=== PATIENT | female | born 1960 | race Caucasian/White ===

== ENCOUNTER 2024-01-31 08:04 | Outpatient (AMB) | payer OTHER, SELFPAY ==
--- NOTE | 2024-01-31 08:16 | A.OFFVIS_ITS ---
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 Patient reports right hand 2nd and 5th digits are lindsay, she has had two injection in her pointer finger. Her last surgeon palmar surgeon on her right hand because of her past surgery. She says these fingers contract daily. Her left hand she is having daily intermittent numbness and tingling in all her left hand digits followed by pain. 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 Reports difficulty gripping, grasping, and lifting objects. She says she has dropped things in the past so she tries to make sure she has a good enough time motion analyst on things before picking them up. Has tried braces and multiple steroid injections to the left thumb and a steroid injection to the right middle finger. The inject she received in the past have helped her with her triggering fingers. Patient was also referred to OT. Hx right middle finger release 06/10/[address] Diaz at [facility]. EMG done at [facility], pt agreed to request results 01/25/24. 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 She complains of pain in her bilateral hands since ~2019. She has pain with gripping, lifting, and holding objects. She reports contractures of her right hand, which makes it difficult to hold things for long periods. She also complains of numbness in her bilateral hands, L>R. She has numbness in her thumbs, index, and middle fingers bilaterally. Symptoms intermittent, but daily, worse at night or with activities such as prolonged driving. She insists that her left small finger also goes numb, but denies small finger numbness in her right. Her NCS showed mild bilateral carpal tunnel syndrome. No copy of the report available, she will request this to be sent over. She also complains of multiple fingers locking & catching on her. She complains of several weeks of her right small finger locking overnight, and during the day with use. Her right index finger recently received a steroid injection at an out side clinic ~4 weeks ago, which has helped, but she continues to have locking issues. She says this was her second index finger injections, and finds they have been somewhat helpful for her. She has a Hx of multiple trigger fingers, S/P release at an outside clinic. Her last was her right middle finger release, DOS: 06/10/[address] Simeon. She has a left trigger thumb released in ~2009 in [place]. She says she was told that she can never have palmar surgery again without developing worsening Dupuytrens contractures. She works as a professional musician, playing Saxophone, and enjoys gardening & painting. She says she often [place] 300+ miles a week to play music, which is difficult for her and makes her hands numb. She says her Saxophone weighs ~40lbs. She says she has done OT hand therapy in the past, with some improvement, and she continues to perform some exercises at home. She also says she has some unknown neurological disorder, possible MS but not confirmed, seeing neuro specialist in [place]. She reports recent brain surgery but does not specify what it was/was for. She says her is dying . 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 Review of Systems Const All systems reviewed & are unremarkable except as noted in HPI and below Physical Exam Vital Signs: BMI result Body Mass Index 25.0 Const General: cooperative, healthy appearing and no acute distress Orientation/consciousness: patient oriented x3 HEENT Head: Yes normocephalic and Yes atraumatic Eyes EOM: EOMs intact bilaterally Resp Effort & Inspection: normal respiratory effort and able to speak in complete sentences Cardio Jugular venous distension: no JVD Skin General skin exam: turgor normal Rashes: no rashes Neuro General: patient oriented x3 Extrem Other: Evaluation of Bilateral Upper Extremity: The patient is alert, oriented, and in no acute distress Please note the patient became somewhat tearful in clinic today. She is evidently going through a lot. She was told that she might have MS, and says that her is dying. 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 Today she had compression gloves on both hands and had Velcro wrist splints on both wrists. She says she needs to wear them because of the carpal tunnel, and the compression gloves she says her because of the generalized pain she gets in her hands. Neuro: Median, Ulnar, Radial nerves motor and sensory intact and sensation is normal to the tips of all digits Vascular: Cap refill brisk ROM: Regarding the left hand: She can bring her fingers closed to a fist bilaterally She can extend all the digits of her left hand Regarding the right hand: She can bring her right thumb, index, ring, and small fingers into full extension There is an early Dupuytrens cord extending from the right mid-palmar region to the middle finger. Her middle finger MCP joint is held in ~15-20 degrees of flexion secondary to this central cord. She demonstrated some catching of the right small finger. I was unable to palpate catching at the A1 thu. No locking or catching of her other fingers of her right hand today in clinic Tender over the a1 thu of the right small finger Skin: No lacerations or abrasions. General: No Ecchymosis. No Erythema or evidence of infection. Nerve Conduction Study: Mild bilateral carpal tunnel syndrome, Left>Right Dr. Marlys Peres 03/07/23 Psych Appearance: grossly normal Affect: normal affect Attitude: cooperative Assessment & Plan Assessment & Plan (1) Carpal tunnel syndrome of left wrist: Code(s): G56.02 - Carpal tunnel syndrome, left upper limb Category: Medical (2) Carpal tunnel syndrome of right wrist: Code(s): G56.01 - Carpal tunnel syndrome, right upper limb Category: Medical (3) Numbness of left hand: Code(s): R20.0 - Anesthesia of skin Category: Medical (4) Dupuytren's contracture of right hand: Code(s): M72.0 - Palmar fascial fibromatosis [Dupuytren] Category: Medical (5) Trigger finger, right index finger: Code(s): M65.321 - Trigger finger, right index finger Category: Medical (6) Trigger finger, right little finger: Code(s): M65.351 - Trigger finger, right little finger Category: Medical (7) Right hand pain: Code(s): M79.641 - Pain in right hand Category: Medical Plan Assessment & Plan: 1. Left carpal tunnel syndrome, mild Symptoms intermittent, but daily, worse at night I educated her about this condition I discussed operative and non-operative treatment options The patient would like to proceed with surgery The risks and benefits of operative treatment were discussed with the patient and the patient wishes to proceed with surgery. These risks include, but are not limited to risk of damage to blood vessels, nerves, tendons, infection, recurrence, incomplete relief of preoperative symptoms, persistent pain, possible need for further surgery and the risks associated with regional blocks and anesthesia. The plan is to take the patient to the operating room sometime in the next few weeks for the following procedures: 1. Left carpal tunnel release, under local All of the preoperative paperwork including the consent was reviewed today. All the patient's questions were answered. The patient understands that they will be contacted by our planner/scheduler soon to schedule this procedure She denies Diabetes, blood thinners, asthma, heart, lung, kidney issues 2. Right carpal tunnel syndrome, mild Symptoms intermittent, but daily, worse at night or with driving She is seen today wearing bilateral compression gloves & bilateral wrist splints We can discuss treatment options when her left hand has recovered from surgery She should discontinue wearing her wrist brace during the day, except for prolonged driving or at night 3. Right small finger catching No catching seen today in clinic Most likely trigger finger, however we should Re-evaluate extensor mechanism to assess for possible extensor tendon issue 4. Right index finger trigger finger S/P 2 injections at an outside clinic Last injection was done in 12/2023 She can follow up to discuss treatment options at a later date 5. Right middle finger early Dupuytrens contracture MCP 15-20/PIP 0 Slender central cord extending into mid-palm I educated her about this condition I discussed operative and non-operative treatment options patient reports she was told by Dr. Simeon that she can not have any more palmar surgeries ?? i directed her to the [email or web address] website for more information I recommend she work on ROM exercises at home, including placing her hand flat on the table No operative intervention indicated at this time If her symptoms increase in severity she can follow up to discuss possible surgical treatment options 6. Left hand numbness In the small finger No Cubital tunnel seen on NCS, no copy of report available for review We will see how she is feeling following her carpal tunnel release We may consider a new NCS in the future 7. Right middle finger trigger finger, S/P release DOS: 06/10/22, done by Dr. Simeon Resolved 8. Left trigger thumb, S/P release DOS: ~2009 at an outside clinic Resolved 9. Right hand pain Frequent rubbing of the MCP and PIP joints, generalized pain 10. Right hand possible spasms Holding the MCP joints in flexion Patient reports her MCP joints get stuck in ~80-90 degrees of flexion Given a brace by OT to hold her MCP joints in extension The only restraint to full extension of the right hand MCP joints, is the slender Dupouytrens cord affecting the middle finger Otherwise etiology unclear Please note that greater than 55 minutes was spent with this patient going over the history, evaluating the patient and radiographs, formulating possible treatment options, discussing them with the patient, and documenting the visit. Scribed for Leann Lu MD by Mendel Aly medical malpractice paralegal, on 01/31/24 at 8:30 AM, EST. Coding Level of Care Code New Pt Level 5 (93115) Diagnoses Carpal tunnel syndrome of left wrist G56.02 Carpal tunnel syndrome of right wrist G56.01 Numbness of left hand R20.0 Dupuytren's contracture of right hand M72.0 Trigger finger, right index finger M65.321 Trigger finger, right little finger M65.351 Right hand pain M79.641
[2024-01-31 08:18] VITALS: BMI 25.0
== END 2024-01-31 09:04 | disposition home or self-care (01) ==
PROVIDERS: Visit Provider Orthopaedic Surgery
DX: G56.03 Carpal tunnel syndrome, bilateral upper limbs (principal); R20.0 Anesthesia of skin; M72.0 Palmar fascial fibromatosis [Dupuytren]; M65.321 Trigger finger, right index finger; M65.351 Trigger finger, right little finger; M79.641 Pain in right hand
CPT/HCPCS: 99205

== ENCOUNTER → 2024-01-31 08:04 | Outpatient (BNVA) | payer OTHER, SELFPAY | PROVIDERS: Visit Provider Orthopaedic Surgery ==

== ENCOUNTER 2024-03-21 06:01 | Day surgery (SDC) | payer OTHER, SELFPAY ==
[2024-03-21 06:25] VITALS: BP 132/72; PULSE 65; RESP 16; TEMP 36.5; O2SAT 96; BMI 25.8
--- NOTE | 2024-03-21 08:05 | MHC.SHP ---
Pre-Procedural Eval Section A - 24 Hr Update-Section A only Date of Service: 03/21/24 The patient is an INPATIENT: No Changes since office visit: No Cold of Flu in the past 2 weeks, No New Medical Problems, No Changes in Medication and No Patient answered all questions The patient has been examined within 24 hours of the surgical procedure. The History & Physical has been completed within 30 days and I have reviewed it.: Yes Section B - Complete if H&P > 30 days Chief Complaint: Carpal tunnel syndrome, left upper limb Allergies: Allergies Allergy/AdvReac Type Severity Reaction Status Date / Time aspirin Allergy Severe Itching Verified 03/21/24 06:24 bee pollen [BEE STINGS] Allergy Severe SWELLING Verified 03/21/24 06:24 tramadol Allergy Severe Itchy Eyes Verified 03/21/24 06:24 acetaminophen [From VICODIN] AdvReac Mild NAUSEA & Verified 03/21/24 06:24 VOMITING hydrocodone [From VICODIN] AdvReac Mild NAUSEA & Verified 03/21/24 06:24 VOMITING Plan Diagnosis/Plan: Unchanged I have reviewed the history and physical and performed a pertinent physical examination on my patient. No changes have occurred unless specified. Time Spent With Patient Time: Total time managing care of this patient today ____ minutes.
--- NOTE | 2024-03-21 08:06 | P.OP_ITS ---
Operative Note Operative Note Date of Service: 03/21/24 Narrative: Preop diagnosis: 1. Left Carpal tunnel syndrome Postop diagnosis: same Procedure: 1. Left Carpal tunnel release Surgeon: Leann Lu MD Regional Environmental Manager: Jordan MONTES Anesthesia: local block using 1% lidocaine with epinephrine Findings: Thickened transverse carpal ligament. EBL: Less than 5 mL Specimens: None Complications: None Disposition: Brought to recovery room in stable condition Plan: Follow-up for 10-14 days for wound check and suture removal Indications: The patient is 63 years old, with left carpal tunnel syndrome that has been unresponsive to nonoperative management. The risks and benefits of operative treatment including but not limited to risk of damage to blood vessels, nerves, tendons, infection, persistent pain, persistent symptoms, or possible need for additional surgery were discussed with the patient and the patient wishes to proceed with surgery. Procedure: Once consent was obtained a local block was performed using a combination of 1% lidocaine with epinephrine. The patient was then brought back to the operating suite and placed on the operative table in supine position. The left upper extremity was prepped and draped in a standard surgical fashion. Once assured that we had a good block, a 2.0 cm longitudinal incision was made centered over the carpal tunnel. The incision was made through the skin to the subcutaneous tissues using a #15 blade. Dissection was made down to the level of the transverse carpal ligament with care being taken to protect the palmar cutaneous nerve. Once the transverse carpal ligament was clearly visualized, a longitudinal incision was made in the transverse carpal ligament 1st using a #15 blade, then using tenotomy scissors under direct visualization. Care was taken to look for and protect the motor branch of the median nerve when seen in this area. Once satisfied with our carpal tunnel release the wound was copiously irrigated with normal saline and hemostasis was obtained with a brief period of local pressure. The skin edges were reapproximated with some 5.0 nylon suture material and a sterile dressing was applied. The patient appears to have tolerated the procedure well and with no complications. All digits were well vascularized at the conclusion of the case.
[2024-03-21 09:14] VITALS: BP 135/56; PULSE 56; RESP 16; O2SAT 97
--- OUTSIDE RECORDS SUMMARY | 2024-03-26 22:45 | XMS_ITS | Continuity of Care Document ---
Author Organization [facility] Address [address] [place] [address] [address] [place] [id number] Phone Care Team Providers Care Trail Construction Worker Name Role Phone Watson VASQUEZ FACS DUSTINT Heather MCLAUGHLIN Unavailable Unavailable Advance Directives Directive Yes / No Effective Date File Name No Information Encounters Encounter Description Practice Location Reason(s) For Visit Diagnoses Date Provider Providers Copied on Encounter [facility], [address] [place] [address] Dr [address], [place], [id number], tel:[phone] [address] [facility] No Information 3 Watson VASQUEZ FACS ERMA Dominguez. [address] [place] [address], [address], [place]. tel:[phone] Family History Family Member Type Diagnosis Age At Onset No Information Payers Payer name Insurance type Covered republican ID Authoriza tion(s) No Information Social History Type Description Quantity Date Captured Comments Sex Female Smoking Status No Information Chief Complaint And Reason For Visit No Information Reason For Referral Reason For Referral No Information History Of Present Illness Encounter Date Complaint History Of Prese nt Illness No Information Functional Status Date Functional Assessmen t No Information Instructions Date Instruction Additional Infor mation No Information Assessments Type Assessment Date No Information Patient Care Teams Name Effective Dates (start - stop) Status Members No Information
== END 2024-03-21 09:17 | disposition home or self-care (01) ==
PROVIDERS: PCP Family Medicine; Visit Provider Orthopaedic Surgery
PROC: (CPT 64721; principal; 2024-03-21 08:10)
DX: G56.02 Carpal tunnel syndrome, left upper limb (principal); R20.0 Anesthesia of skin; R20.2 Paresthesia of skin; M79.642 Pain in left hand; M72.0 Palmar fascial fibromatosis [Dupuytren]; M79.641 Pain in right hand; Z88.6 Allergy status to analgesic agent; Z88.5 Allergy status to narcotic agent; Z98.890 Other specified postprocedural states
CPT/HCPCS: 64721; J0171; J2003

== ENCOUNTER → 2024-03-21 06:01 | Outpatient (BNV) | payer OTHER, SELFPAY | PROVIDERS: PCP Family Medicine; Visit Provider Orthopaedic Surgery | DX: G56.02 Carpal tunnel syndrome, left upper limb (principal) | CPT/HCPCS: 64721 ==

== ENCOUNTER 2024-04-03 13:46 | Outpatient (AMB) | payer OTHER, SELFPAY ==
--- NOTE | 2024-04-03 14:09 | A.OFFVIS_ITS ---
Vital Signs 04/03/24 14:12 Height 5 ft 5 in Weight 162 lb BMI 27.0 Handedness Left Intake Visit Reasons: PO LT CTR 03/21/24 AR Intake Note: Julisa Chaudhari is a 63 year old left hand dominant female who presents today post operatively s/p left carpal tunnel release DOS: 03/21/24 w/ Dr Lu. Reports she is no longer having numbness or tingling. Denies pain, states she is having soreness and her incison is itchy. Sutures removed and steri strips applied. Denies any drainage. Allergies aspirin Allergy (Severe, Verified 04/03/24 14:12) Itching azithromycin Allergy (Severe, Verified 04/03/24 14:13) Hives bee pollen [BEE STINGS] Allergy (Severe, Verified 04/03/24 14:12) SWELLING tramadol Allergy (Severe, Verified 04/03/24 14:12) Itchy Eyes acetaminophen [From VICODIN] Adverse Reaction (Mild, Verified 04/03/24 14:12) NAUSEA & VOMITING hydrocodone [From VICODIN] Adverse Reaction (Mild, Verified 04/03/24 14:12) NAUSEA & VOMITING HPI HPI PO LT CTR 03/21/24 AR: Details: Patient is a 63-year-old female who presents for postoperative evaluation status post left carpal tunnel release, DOS 03/21/2024. Today, the patient reports that she is feeling well, and denies any ongoing numbness or tingling in the left hand. Patient states that she only experiences some itchiness around the incision site. Patient reports that she does have some darkening of the skin around the incision site states that she was not feel that this is redness as a sign of infection. 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 Review of Systems Const All systems reviewed & are unremarkable except as noted in HPI and below Physical Exam Vital Signs: BMI result Body Mass Index 27.0 Const General: cooperative, healthy appearing and no acute distress Orientation/consciousness: patient oriented x3 HEENT Head: Yes normocephalic and Yes atraumatic Eyes EOM: EOMs intact bilaterally Resp Effort & Inspection: normal respiratory effort and able to speak in complete sentences Cardio Jugular venous distension: no JVD Skin General skin exam: turgor normal Rashes: no rashes Neuro General: patient oriented x3 Extrem Other: Evaluation of Bilateral Upper Extremity: Neuro: Median, Ulnar, Radial nerves motor and sensory intact and sensation is normal to the tips of all digits Vascular: Cap refill brisk ROM: Regarding the left hand: She can bring her fingers closed to a fist bilaterally She can extend all the digits of her left hand Regarding the right hand: She can bring her right thumb, index, ring, and small fingers into full extension There is an early Dupuytrens cord extending from the right mid-palmar region to the middle finger. Her middle finger MCP joint is held in ~15-20 degrees of flexion secondary to this central cord. She demonstrated some catching of the right small finger. I was unable to palpate catching at the A1 thu. No locking or catching of her other fingers of her right hand today in clinic Tender over the a1 thu of the right small finger Skin: Well approximated and well healing incision site noted on the volar aspect of the patient's left wrist General: No Ecchymosis. No Erythema or evidence of infection. Nerve Conduction Study: Mild bilateral carpal tunnel syndrome, Left>Right Dr. Marlys Peres 03/07/23 Psych Appearance: grossly normal Affect: normal affect Attitude: cooperative Assessment & Plan Assessment & Plan (1) Carpal tunnel syndrome of left wrist: Code(s): G56.02 - Carpal tunnel syndrome, left upper limb Category: Medical (2) Carpal tunnel syndrome of right wrist: Code(s): G56.01 - Carpal tunnel syndrome, right upper limb Category: Medical (3) Dupuytren's contracture of right hand: Code(s): M72.0 - Palmar fascial fibromatosis [Dupuytren] Category: Medical Plan Assessment & Plan: 1. Left carpal tunnel syndrome, mild, status post carpal tunnel release DOS 03/21/2024 Patient appears to be recovering well postoperatively Patient is educated about the typical recovery course At this time, patient is informed that I do not feel she requires any acute follow-up for left carpal tunnel release, as she appears to be recovering very well Patient is educated that I do not have any concerns for infection of the incision site at this time Patient will follow-up as needed with any concerns 2. Right carpal tunnel syndrome, mild Symptoms intermittent, but daily, worse at night or with driving She is seen today wearing bilateral compression gloves & bilateral wrist splints Patient states she would like to hold off on surgical intervention on the right at this time, as she needs to take care of her at home and wants to make sure that her left hand is fully recovered prior to any further surgical intervention of the right hand She should discontinue wearing her wrist brace during the day, except for prolonged driving or at night 3. Right middle finger early Dupuytrens contracture MCP 15-20/PIP 0 Slender central cord extending into mid-palm I educated her about this condition I discussed operative and non-operative treatment options patient reports she was told by Dr. Simeon that she can not have any more palmar surgeries ?? i directed her to the [email or web address] website for more information I recommend she work on ROM exercises at home, including placing her hand flat on the table No operative intervention indicated at this time If her symptoms increase in severity she can follow up to discuss possible surgical treatment options Scribed for Leann Lu MD by Mendel Aly, medical billing and coding specialist, on 01/31/24 at 8:30 AM, EST. Coding Level of Care Code Global (12422) Diagnoses Carpal tunnel syndrome of left wrist G56.02 Carpal tunnel syndrome of right wrist G56.01 Dupuytren's contracture of right hand M72.0
[2024-04-03 14:12] VITALS: BMI 27.0
== END 2024-04-03 14:37 | disposition home or self-care (01) ==
PROVIDERS: PCP Family Medicine
DX: G56.03 Carpal tunnel syndrome, bilateral upper limbs (principal); M72.0 Palmar fascial fibromatosis [Dupuytren]
CPT/HCPCS: 99024